=== PATIENT | female | born 1970 ===

== ENCOUNTER 2018-06-15 11:07 | Emergency (ER) | payer OTHER ==
[2018-06-15 11:14] VITALS: BMI 28.0
[2018-06-15 11:16] VITALS: BP 123/75; PULSE 77; RESP 17; TEMP 97.2; O2SAT 97
--- NOTE | 2018-06-15 12:14 | ED PDOC ---
HPI: Back Time Seen by Provider: 06/15/18 12:05 Chief Complaint (Nursing): Back Pain Chief Complaint (Provider): Back Pain History Per: Patient History/Exam Limitations: no limitations Onset/Duration Of Symptoms: Days (x1 month) Current Symptoms Are (Timing): Still Present Additional Complaint(s): 47 year old female presents to the ED for evaluation of back pain. Patient reports that one month ago she had a slip and fall incident where she landed on her buttocks, and since has had lower back pain radiating down through her left buttocks to her left knee, only minimally relieved by Ibuprofen. Additionally, she notes urinary frequency, but no dysuria, hematuria, incontinence, nausea, fever, vomiting, or bilateral lower extremity numbness. Patient denies taking an y medication today. PMD: none provided Past Medical History Reviewed: Historical Data, Nursing Documentation, Vital Signs Vital Signs: Last Vital Signs Temp 97.2 F L 06/15/18 11:14 Pulse 77 06/15/18 11:14 Resp 17 06/15/18 11:14 BP 123/75 06/15/18 11:14 Pulse Ox 97 06/15/18 11:14 - Medical History PMH: No Chronic Diseases - Surgical History Surgical History: No Surg Hx - Family History Family History: States: Unknown Family Hx - Social History Current smoker - smoking cessation education provided: No Alcohol: Social Drugs: Denies - Home Medications Home Medications: Ambulatory Orders Medication Instructions Recorded Cyclobenzaprine [Cyclobenzaprine 10 mg PO Q8H PRN #15 tab 06/15/18 HCl] Naproxen 500 mg PO Q12H PRN #30 tab 06/15/18 Nitrofurantoin Monohyd/M-Cryst 100 mg PO BID #14 capsule 06/15/18 [Macrobid 100 mg Capsule] - Allergies Allergies/Adverse Reactions: Allergies Allergy/AdvReac Type Severity Reaction Status Date / Time No Known Allergies Allergy Verified 06/15/18 12:03 Review of Systems ROS Statement: Except As Marked, All Systems Reviewed And Found Negative Constitutional: Negative for: Fever Gastrointestinal: Negative for: Nausea, Vomiting Genitourinary Female: Positive for: Frequency. Negative for: Dysuria, Incontinence, Hematuria Musculoskeletal: Positive for: Back Pain (lower, radiating down left leg from buttock to knee) Neurological: Negative for: Numbness (in bilateral LE) Physical Exam - Reviewed Nursing Documentation Reviewed: Yes Vital Signs Reviewed: Yes - Physical Exam Appears: Positive for: No Acute Distress Head Exam: Positive for: ATRAUMATIC, NORMAL INSPECTION, NORMOCEPHALIC Skin: Positive for: Normal Color, Warm, Dry. Negative for: Rash Eye Exam: Positive for: Normal appearance Neck: Positive for: Normal, Painless ROM, Supple Cardiovascular/Chest: Positive for: Regular Rate, Rhythm Respiratory: Positive for: Normal Breath Sounds. Negative for: Respiratory Distress Pulses-Dorsalis Pedis (L): 2+ Pulses-Dorsalis Pedis (R): 2+ Gastrointestinal/Abdominal: Positive for: Normal Exam, Soft. Negative for: Tend erness Back: Positive for: Normal Inspection (no erythema, ecchymosis, signs of injury, or break in skin integrity), Other (point tenderness to lower lumbar spine) Extremity: Positive for: Normal ROM (all extremities). Negative for: Deformity Neurological/Psych: Positive for: Awake, Alert, Oriented (x3), Gait (steady). Negative for: Motor/Sensory Deficits - ECG O2 Sat by Pulse Oximetry: 97 (RA) Pulse Ox Interpretation: Normal Medical Decision Making Medical Decision Making: Time: 1208 Initial Impression: sciatica Initial Plan: --U-preg --Flexeril 10mg PO / Toradol 30mg IM (pt not driving home) --Urinalysis --Reevaluation 1330 Upon reevaluation, patient reports improvement in pain and states she feels better. UA results as: moderate leukocytes, no nitrates, elevated WBCs, and occasional bacteria, which is indicative of a UTI. Patient will be given scripts for Macrobid, Flexeril, and Naproxen 500 q12. All clinical findings discussed with patient who then verbalized her understanding and agreement of plan and treatment. Educated pt on ED return parameters, and advised to follow up with PMD if needed. Stable for discharge with diagnosis of UTI and sciatica. Scribe Attestation: Documented by Nasreen Benavidez, acting as a scribe for Sujata Sheikh APN. Provider Scribe Attestation: All medical record entries made by the Scribe were at my direction and personally dictated by me. I have reviewed the chart and agree that the record accurately reflects my personal performance of the history, physical exam, medical decision making, and the department course for this patient. I have also personally directed, reviewed, and agree with the discharge instructions and disposition. Disposition - Clinical Impression Clinical Impression: Urinary tract infection, Sciatica - Patient ED Disposition Is Patient to be Admitted: No Counseled Patient/Family Regarding: Diagnosis, Rx Given - Disposition Disposition: Routine/Home Disposition Time: 13:30 Condition: STABLE Prescriptions: Cyclobenzaprine [Cyclobenzaprine HCl] 10 mg PO Q8H PRN #15 tab PRN Reason: Muscle Spasm Naproxen 500 mg PO Q12H PRN #30 tab PRN Reason: Pain, Moderate (4-7) Nitrofurantoin Monohyd/M-Cryst [Macrobid 100 mg Capsule] 100 mg PO BID #14 capsule Instructions: Urinary Tract Infections in Adults Print Language: PASHTO - POA Present On Arrival: None
[2018-06-15 13:24] LABS: SQUAMOUS EPITHIAL 84 /hpf (0-5); URINE AMORPHOUS SEDIMENT MANY /ul (<OCC); URINE BACTERIA OCC (<OCC); URINE BILIRUBIN NEGATIVE (NEGATIVE); URINE BLOOD MODERATE (NEGATIVE); URINE CLARITY TURBID (Clear); URINE COLOR YELLOW (YELLOW); URINE GLUCOSE (UA) NEG (NEGATIVE); URINE LEUKOCYTE ESTERASE MOD Leu/uL (Negative); URINE PROTEIN 100 mg/dL (NEGATIVE); URINE UROBILINOGEN 0.2-1.0 mg/dL (0.2-1.0); WBC CLUMPS FEW /hpf
== END 2018-06-15 15:04 | disposition home or self-care (01) ==
LOC: H.ER 11:07
DX: N39.0 Urinary tract infection, site not specified (principal); M54.30 Sciatica, unspecified side; W01.0XXA Fall on same level from slipping, tripping and stumbling without subsequent striking against object, initial encounter
CPT/HCPCS: 81003; 81025; 96372; 99283; J1885